=== PATIENT | female | born 1990 | race Caucasian/White ===

== ENCOUNTER 2016-06-24 15:11 | Emergency (ER) | payer OTHER ==
[~2016-06-24] VITALS: Wt 52.3 kg
--- NOTE | 2016-06-24 18:30 | ERD ---
ER Documentation Chief Complaint Date/Time DATE: 06/24/16 TIME: 18:28 Chief Complaint R EYE PAIN AND REDNESS SUDDEN ONSET TODAY. NO TRAUMA. HPI This is a 25-year-old female presenting to the emergency department complaining of sudden right eye redness that occurred yesterday. Patient denies any pain or discharge. She denies any trauma. Patient denies any vision changes ROS All systems reviewed and are negative except as per history of present illness. Allergies Allergies: Coded Allergies: No Known Allergies (Verified Allergy, 12/30/11) PMhx/Soc Medical and Surgical Hx: pt denies Medical Hx, pt denies Surgical Hx History of Surgery: No Anesthesia Reaction: No Hx Neurological Disorder: No Hx Respiratory Disorders: No Hx Cardiac Disorders: No Hx Psychiatric Problems: No Hx Miscellaneous Medical Probl: No Hx Alcohol Use: No Hx Substance Use: Yes (MEDICAL MARIJUANA) Hx Tobacco Use: No Physical Exam Vitals Vital Signs Date Time Temp Pulse Resp B/P Pulse Ox O2 Delivery O2 Flow Rate FiO2 06/24/16 15:20 98.7 78 20 90/58 99 Physical Exam General: WD/WN, in no apparent distress, non-toxic appearing HENT: NC/AT EYES: Conjunctiva normal, no icterus Extraocular muscles intact, pupils equal and reactive to light with consensual response Right eye has a subconjunctival hemorrhage on the upper medial aspect NECK: Supple; no LAD PULM: Normal labored breathing CV: RRR Good capillary refill GI: Non-distended, no guarding BACK: No masses EXT: No clubbing, cyanosis, or edema NEURO: Moves on all fours SKIN: intact PSYCH: Normal mood Procedures/MDM This is a 25-year-old female presented to emergency department complaining of right eye redness that occurred suddenly yesterday. On examination patient's symptoms are most consistent with a subconjunctival hemorrhage. Patient did not have any vision changes, she is neurovascular intact. Low suspicion for any global rupture or any other acute ophthalmologic conditions. Patient stable to follow-up with her primary care physician. Discussed return to the ER for worsening symptoms. She understands and agrees with plan Departure Diagnosis: Primary Impression: Subconjunctival hemorrhage Condition: Stable Patient Instructions: Subconjunctival Hemorrhage Referrals: [facility] Hours: Mon - Fri 9:00 AM - 5:00 PM Additional Instructions: FOLLOW UP WITH YOUR PRIMARY CARE PHYSICIAN TOMORROW.Return to this facility if you are not improving as expected. AMBROCIO PEACOCK PA-C Jun 24, 2016 18:30
== END 2016-06-24 18:11 | disposition home or self-care (01) ==
LOC: FTE 15:11
DX: H11.31 Conjunctival hemorrhage, right eye (principal)
CPT/HCPCS: 99282

== ENCOUNTER 2016-09-25 09:14 | Emergency (ER) | payer OTHER ==
[~2016-09-25] VITALS: Ht 162.6 cm; Wt 52.0 kg
[2016-09-25 09:15] VITALS: Ht 162.6 cm; Wt 52.0 kg
[2016-09-25] MEDS ORDERED: ONDANSETRON (ODT) 4 MG TAB ODT STA (09:39)
[2016-09-25] MEDS ORDERED: KETOROLAC 30 MG INJ IM STA (09:39)
[2016-09-25] MEDS ORDERED: BENZ100C70 PO (09:47)
[2016-09-25] MEDS ORDERED: IBUP400T22 PO (09:47)
[2016-09-25] MEDS ORDERED: ONDA4TAB14 PO (09:47)
--- NOTE | 2016-09-25 10:43 | ERD ---
ER Documentation Chief Complaint Date/Time DATE: 09/25/16 TIME: 10:33 Chief Complaint sore throat and bodyaches x 4 days HPI 26 year old female patient with no significant past medical history presents to the ED complaining of sore throat, dry cough, body aches that started 4 days ago. Reports that she had a fever last night and was taking a a medication called XL-3. Reports that it improved her fever but did not improve her sore throat and cough. States that she is nauseous but denies any vomiting. Denies any abdominal pain, chills, diarrhea, chest pain, shortness of breath, rashes. Denies any sick contacts. Patient is eating appropriately, tolerating oral intake. Denies any dysphagia or odynophagia. ROS All systems reviewed and are negative except as per history of present illness. Medications Home Meds Active Scripts Ondansetron (Ondansetron Odt) 4 Mg Tab.rapdis, 4 MG PO Q6H Y for NAUSEA AND/OR VOMITING, #10 TAB Prov:KEI WEBER PA-C 09/25/16 Ibuprofen* (Motrin*) 400 Mg Tab, 400 MG PO Q6, #30 TAB Prov:KEI WEBER PA-C 09/25/16 Benzonatate* (Tessalon Perle*) 100 Mg Capsule, 100 MG PO Q8H Y for COUGH, #20 CAP Prov:KEI WEBER PA-C 09/25/16 Allergies Allergies: Coded Allergies: No Known Allergies (Verified Allergy, Unknown, 09/25/16) PMhx/Soc Medical and Surgical Hx: pt denies Medical Hx, pt denies Surgical Hx History of Surgery: No Anesthesia Reaction: No Hx Neurological Disorder: No Hx Respiratory Disorders: No Hx Cardiac Disorders: No Hx Psychiatric Problems: No Hx Miscellaneous Medical Probl: No Hx Alcohol Use: No Hx Substance Use: Yes (MEDICAL MARIJUANA) Hx Tobacco Use: No Smoking Status: Never smoker Physical Exam Vitals Vital Signs Date Time Temp Pulse Resp B/P Pulse Ox O2 Delivery O2 Flow Rate FiO2 09/25/16 09:15 97.8 77 18 108/73 98 Physical Exam Const: [id number], well-nourished. In no acute distress. Head: Atraumatic, normocephalic Eyes: Normal Conjunctiva without injection. No purulent discharge. PERRL. EOMI ENT: Normal external ear. Ear canal without erythema. Tympanic membrane pearly barajas without effusion or bulging. Nasal canal clear with normal turbinates. Moist oropharynx without tonsillar exudates. Non-erythematous pharynx. Uvula midline. No drooling. No trismus. Neck: Full range of motion. No meningismus. No cervical lymphadenopathy. Resp: Clear to auscultation bilaterally. No wheezing, rhonchi, rales, or crackles. No accessory muscle use. No retractions. Cardio: Regular rate and rhythm. No murmurs, rubs or gallops. Abd: Soft, non tender, non distended. Normal bowel sounds. No palpable masses. No rebound tenderness. No guarding. Skin: No petechiae or rashes Back: No midline tenderness. No CVA tenderness. Ext: No cyanosis, or edema. Neur: Awake and alert. Psych: Normal Mood and Affect Results 24 hrs Current Medications Medications (Trade) Dose Ordered Sig/Christos Route PRN Reason Start Time Stop Time Status Last Admin Dose Admin Ketorolac Tromethamine (Toradol) 30 mg ONCE STAT IM 09/25/16 09:39 09/25/16 09:41 DC 09/25/16 09:46 Ondansetron HCl (Zofran Odt) 4 mg ONCE STAT ODT 09/25/16 09:39 09/25/16 09:41 DC 09/25/16 09:45 Procedures/MDM 26-year-old female patient with no significant past medical history presents to the ED complaining of sore throat, dry cough, body aches that started 4 days ago. Patient is afebrile nontoxic appearing. Patient has normal vital signs. Patient was given Toradol and Zofran here in the ED which improved her symptoms. Patient did not vomit here in the ED. Negative urine . Patient symptoms could likely be due to viral flulike symptoms. Differentials also include mononucleosis. Patient was still instructed to avoid contact sports for 6 weeks. Symptomatic treatment on outpatient basis is recommended at this time. Patient is afebrile and has normal vital signs. Patient's physical exam include lungs which were clear to auscultation and a normal pulse oximetry. There is a low suspicion for pneumonia, pneumothorax, pulmonary embolism, epiglottitis, otitis media, otitis externa, viral/strep pharyngitis, sinusitis, peritonsillar abscess, mastoiditis, retropharyngeal abscess, meningitis, sepsis, acute abdomen or other emergent conditions. Fluids, rest, and symptomatic treatment are recommended for the management of patient's symptoms. Discharge medications: Zofran, Tessalon Perles, Ibuprofen Patient was instructed to return to the ED for any new or worsening symptoms. They should otherwise follow up with the primary care provider within 1-2 days. The patient's questions were answered at the time of discharge. Patient understood and agreed with discharge management. Departure Diagnosis: Primary Impression: Flu-like symptoms Condition: Stable Patient Instructions: Influenza (Child), Mononucleosis Referrals: [facility] YOU HAVE RECEIVED A MEDICAL SCREENING EXAM AND THE RESULTS INDICATE THAT YOU DO NOT HAVE A CONDITION THAT REQUIRES URGENT TREATMENT IN THE EMERGENCY DEPARTMENT. FURTHER EVALUATION AND TREATMENT OF YOUR CONDITION CAN WAIT UNTIL YOU ARE SEEN IN YOUR DOCTORS OFFICE WITHIN THE NEXT 1-2 DAYS. IT IS YOUR RESPONSIBILITY TO MAKE AN APPOINTMENT FOR FOLOW-UP CARE. IF YOU HAVE A PRIMARY DOCTOR --you should call your primary doctor and schedule an appointment IF YOU DO NOT HAVE A PRIMARY DOCTOR YOU CAN CALL OUR PHYSICIAN REFERRAL HOTLINE AT IF YOU CAN NOT AFFORD TO SEE A PHYSICIAN YOU CAN CHOSE FROM THE FOLLOWING [facility] [address] [facility]. [facility] [address] [facility]. [facility] [address] [facility] [facility] [address] [facility] [facility] [address] [facility]. [facility]. [address] [facility] [place]. [facility] YOU HAVE RECEIVED A MEDICAL SCREENING EXAM AND THE RESULTS INDICATE THAT YOU DO NOT HAVE A CONDITION THAT REQUIRES URGENT TREATMENT IN THE EMERGENCY DEPARTMENT. FURTHER EVALUATION AND TREATMENT OF YOUR CONDITION CAN WAIT UNTIL YOU ARE SEEN IN YOUR DOCTORS OFFICE WITHIN THE NEXT 1-2 DAYS. IT IS YOUR RESPONSIBILITY TO MAKE AN APPOINTMENT FOR FOLOW-UP CARE. IF YOU HAVE A PRIMARY DOCTOR --you should call your primary doctor and schedule and appointment IF YOU DO NOT HAVE A PRIMARY DOCTOR YOU CAN CALL OUR PHYSICIAN REFERRAL HOTLINE AT . IF YOU CAN NOT AFFORD TO SEE A PHYSICIAN YOU CAN CHOSE FROM THE FOLLOWING [facility]: [facility] [address] [place] [address] [facility] [address] [place] [address] [facility] [address] [place] [address] [facility] URGENT CARE/SPECIALTIES Additional Instructions: Call your primary care doctor TOMORROW for an appointment during the next 2-3 days.See the doctor sooner or return here if your condition worsens before your appointment time. KEI WEBER PA-C Sep 25, 2016 10:43
== END 2016-09-25 09:57 | disposition home or self-care (01) ==
LOC: FTE 09:14
DX: J02.9 Acute pharyngitis, unspecified (principal); R11.0 Nausea; R05 Cough; R52 Pain, unspecified
CPT/HCPCS: J1885; Z7610; 96372

== ENCOUNTER 2017-06-06 23:45 | Emergency (ER) | END 2017-06-07 11:55 ==

== ENCOUNTER 2017-09-21 05:36 | Emergency (ER) | END 2017-09-21 07:32 | disposition home or self-care (01) ==

== ENCOUNTER 2018-01-06 11:44 | Emergency (ER) | END 2018-01-06 19:38 ==